=== PATIENT | male | born 1955 | race Caucasian/White ===

== ENCOUNTER 2018-03-05 10:55 | Day surgery (SDC) | payer OTHER ==
[~2018-03-05] VITALS: Ht 182.9 cm; Wt 82.0 kg
[2018-03-05] MEDS ORDERED: DILT120C11 PO (11:39)
[2018-03-05] MEDS ORDERED: ASPI-621 PO (11:39)
[2018-03-05] MEDS ORDERED: ATOR10TA9 PO (11:39)
[2018-03-05 11:40] VITALS: BP 116/71
[2018-03-05] MEDS ORDERED: SODIUM CHLORIDE 0.9% 1,000 ML IV SCH (12:00)
[2018-03-05] MEDS ORDERED: PLEASE ENTER ALLERGIES MC SCH (12:30)
[2018-03-05] MEDS ORDERED: ISOPROTERENOL 0.2MG/ML, 5ML ONE (13:01)
[2018-03-05] MEDS ORDERED: ADENOSINE 6 MG/2 ML ONE (13:01)
[2018-03-05] MEDS ORDERED: ONDANSETRON 2MG/ML, 2ML ONE (13:14)
[2018-03-05] MEDS ORDERED: MIDAZOLAM 1 MG/ML, 2ML ONE (13:17)
[2018-03-05] MEDS ORDERED: FENTANYL PF 250 MCG/5ML ONE (13:17)
[2018-03-05] MEDS ORDERED: DEXAMETHASONE 4 MG/ML, 1ML ONE (16:19)
[2018-03-05] MEDS ORDERED: PROPOFOL 10 MG/ML, 20ML ONE (16:19)
[2018-03-05] MEDS ORDERED: ROCURONIUM 10 MG/ML,10ML ONE (16:19)
[2018-03-05] MEDS ORDERED: HEPARIN 1,000 UNITS/ML, 10ML ONE (16:19)
[2018-03-05] MEDS ORDERED: SUCCINYLCHOLINE 20 MG/ML, 10ML ONE (16:19)
[2018-03-05] MEDS ORDERED: LORazepam 2 MG/ML, 1ML IVPush PRN (17:00)
[2018-03-05] MEDS ORDERED: MIDAZOLAM 1 MG/ML, 2ML IV PRN (17:00)
[2018-03-05] MEDS ORDERED: ONDANSETRON 2MG/ML, 2ML IV PRN (17:00)
[2018-03-05] MEDS ORDERED: HYDROmorphone 1 MG/ML, 1ML IV PRN (17:00)
[2018-03-05] MEDS ORDERED: ALBUTEROL SULFATE 2.5 MG/3 ML NPPB PRN (17:00)
[2018-03-05] MEDS ORDERED: FENTANYL PF 100 MCG/2ML IV PRN (17:00)
[2018-03-05] MEDS ORDERED: ONDANSETRON ODT 8 MG PO PRN (17:00)
[2018-03-05] MEDS ORDERED: PROMETHAZINE 25 MG/ML, 1ML IV PRN (17:00)
[2018-03-05] MEDS ORDERED: EPHEDRINE 50 MG/ML, 1ML IVPush PRN (17:00)
[2018-03-05] MEDS ORDERED: PROMETHAZINE 12.5 MG SUPP PR PRN (17:00)
[2018-03-05] MEDS ORDERED: MORPHINE SULFATE 4 MG/ML, 1ML IVPush PRN (17:00)
[2018-03-05] MEDS ORDERED: LABETALOL 5MG/ML, 20ML IV PRN (17:00)
[2018-03-05] MEDS ORDERED: MEPERIDINE/PF 25MG/0.5ML IVPush PRN (17:00)
[2018-03-05] MEDS ORDERED: HALOPERIDOL 5 MG/ML IV PRN (17:00)
[2018-03-05] MEDS ORDERED: hydrALAzine 20 MG/ML, 1ML IV PRN (17:00)
[2018-03-05] MEDS ORDERED: OXYcodone 5 MG/5 ML ORAL.SOL UDC PO PRN (17:00)
[2018-03-05 17:34] VITALS: BP 112/64
== END 2018-03-05 22:18 | disposition home or self-care (01) ==
LOC: CACL 10:55 → 5SO 17:30 → CACL 22:18
PROVIDERS: ATTEND Internal Medicine Cardiovascular Disease
DX: R00.0 Tachycardia, unspecified (principal); Z79.82 Long term (current) use of aspirin
CPT/HCPCS: 93613; 93621; 93653; C1730; C1732; C1894; J0330; J1100; J1644; J2250; J2405; J2704; J3010; G0378; J0153

== ENCOUNTER → 2020-02-11 | Outpatient (CLI) | payer OTHER ==
[~2020-02-11] MED LIST: ASPI81TA45 PO; ATOR10TA9 PO; DILT120C11 PO
[2020-02-11 12:58] LABS: INTERNATIONAL NORMALIZED RATIO 1.04 (0.93-1.1); PROTHROMBIN TIME 10.7 Seconds (9.6-11.5)
[2020-02-11 13:25] LABS: ALANINE AMINOTRANSFERASE 26 U/L (12-78); ALBUMIN 3.9 g/dL (3.4-5.0); ANION GAP 4 mmol/L (5-15); CALCIUM 8.7 mg/dL (8.5-10.1); CHLORIDE 109 mmol/L (98-107); CREATININE 0.79 mg/dL (0.7-1.3)
[2020-02-11 13:30] LABS: ALKALINE PHOSPHATASE 65 U/L (45-117); BILIRUBIN,TOTAL 0.5 mg/dL (0.2-1.0); TOTAL PROTEIN 6.9 g/dL (6.4-8.2)
[2020-02-11 13:50] LABS: BASOPHILS # (AUTO) 0.03 x10^3/uL (0-0.1); BASOPHILS % (AUTO) 1 % (0-1); EOSINOPHILS % (AUTO) 2 % (1-7); LYMPHOCYTES # (AUTO) 1.83 x10^3/uL (1-3.4); LYMPHOCYTES % (AUTO) 41 % (22-44); MD NO; MEAN CORPUSCULAR HEMOGLOBIN 31.8 pg (27.5-34.5); MEAN CORPUSCULAR HGB CONC 32.9 g/dL (33.2-36.2); MEAN PLATELET VOLUME 10.6 fL (7.4-10.4); MONOCYTES # (AUTO) 0.42 x10^3/uL (0.2-0.8); MONOCYTES % (AUTO) 9 % (2-9); NEUTROPHILS # (AUTO) 2.11 x10^3/uL (1.8-6.8); NEUTROPHILS % (AUTO) 47 % (42-75); PLATELET COUNT 173 x10^3/uL (130-400); RED BLOOD COUNT 4.73 x10^6/uL (4.38-5.82); RED CELL DISTRIBUTION WIDTH 13.6 % (9.4-14.8)
== END | disposition home or self-care (01) ==
LOC: CFH 09:03
PROVIDERS: ATTEND Internal Medicine Cardiovascular Disease
DX: I48.91 Unspecified atrial fibrillation (principal)
CPT/HCPCS: 36415; 80053; 85025; 85610; 85730

== ENCOUNTER → 2020-02-12 | Outpatient (CLI) | payer OTHER ==
[~2020-02-12] MED LIST changes: +OMNIPAQUE 350 MG/ML, 150 ML BOTTLE ONE
== END | disposition home or self-care (01) ==
LOC: CFH 11:36
PROVIDERS: ATTEND Internal Medicine Cardiovascular Disease
DX: I77.810 Thoracic aortic ectasia (principal); I48.91 Unspecified atrial fibrillation
CPT/HCPCS: 71046; 75572; Q9967

== ENCOUNTER 2020-02-18 05:59 | Observation (INO) | payer OTHER ==
[~2020-02-18] VITALS: Ht 182.9 cm; Wt 82.9 kg
[~2020-02-18 05:59] MED LIST changes: -OMNIPAQUE 350 MG/ML, 150 ML BOTTLE ONE
[2020-02-18] MEDS ORDERED: SODIUM CHLORIDE 0.9% 1,000 ML IV SCH (06:22)
[2020-02-18 06:26] VITALS: BP 110/66
[2020-02-18] MEDS ORDERED: SODIUM CHLORIDE 0.9% 1,000 ML IV ONE (06:30)
[2020-02-18] MEDS ORDERED: MULT-249 PO (06:34)
[2020-02-18] MEDS ORDERED: DILT120C11 PO (06:34)
[2020-02-18] MEDS ORDERED: PROPOFOL 50 ML ONE (07:42)
[2020-02-18] MEDS ORDERED: MIDAZOLAM 1 MG/ML, 2ML ONE (07:42)
[2020-02-18] MEDS ORDERED: FENTANYL PF 250 MCG/5ML ONE (07:42)
[2020-02-18] MEDS ORDERED: LIDOCAINE 1%, 20ML ONE (07:48)
[2020-02-18] MEDS ORDERED: SUCCINYLCHOLINE 20 MG/ML, 10ML ONE (08:12)
[2020-02-18] MEDS ORDERED: DEXAMETHASONE 4 MG/ML, 1ML ONE (09:35)
[2020-02-18] MEDS ORDERED: HEPARIN 1,000 UNITS/ML, 10ML ONE ×2 (09:35)
[2020-02-18] MEDS ORDERED: ROCURONIUM 10 MG/ML,10ML ONE (09:35)
[2020-02-18] MEDS ORDERED: ONDANSETRON 2MG/ML, 2ML ONE (09:35)
[2020-02-18] MEDS ORDERED: FENTANYL PF 100 MCG/2ML ONE (10:38)
[2020-02-18] MEDS ORDERED: LABETALOL 5MG/ML, 20ML IV PRN (11:00)
[2020-02-18] MEDS ORDERED: ONDANSETRON 2MG/ML, 2ML IVPush PRN (11:00)
[2020-02-18] MEDS ORDERED: ACETAMINOPHEN 325 MG TABLET PO PRN ×2 (11:00→11:30)
[2020-02-18] MEDS ORDERED: FENTANYL PF 100 MCG/2ML IV PRN (11:00)
[2020-02-18] MEDS ORDERED: MEPERIDINE/PF 25MG/0.5ML IVPush PRN (11:00)
[2020-02-18] MEDS ORDERED: EPHEDRINE 50 MG/ML, 1ML IM PRN (11:00)
[2020-02-18] MEDS ORDERED: DIPHENHYDRAMINE 50 MG/ML, 1ML IVPush PRN (11:00)
[2020-02-18] MEDS ORDERED: DIAZEPAM 5 MG/ML, 2ML IVPush PRN (11:00)
[2020-02-18] MEDS ORDERED: morphine SULFATE 10 MG/ML, 1ML IVPush PRN (11:00)
[2020-02-18] MEDS ORDERED: OXYcodone 5 MG/5 ML ORAL.SOL UDC PO PRN (11:00)
[2020-02-18] MEDS ORDERED: EPHEDRINE 50 MG/ML, 1ML IVPush PRN (11:00)
[2020-02-18] MEDS ORDERED: PROMETHAZINE 25 MG/ML, 1ML IVPush PRN (11:00)
[2020-02-18] MEDS: APIXABAN 5 MG TABLET PO SCH ×2 (12:35→20:14)
[2020-02-18] MEDS ORDERED: APIXABAN 5 MG TABLET ONE (12:43)
[2020-02-18] MEDS ORDERED: ASCO100018 PO (13:28)
[2020-02-18] MEDS ORDERED: APIX5TAB PO (13:28)
[2020-02-18] MEDS ORDERED: KRIL1CAP31 PO (13:30)
[2020-02-18] MEDS ORDERED: ZOLP-413 PO (13:39)
[2020-02-18 14:11] VITALS: BP 109/67
[2020-02-18] MEDS ORDERED: ZOLPIDEM 5MG TABLET PO PRN (16:00)
[2020-02-18] MEDS ORDERED: FLU VACC QS2020-21(6MOS UP)/PF 60MCG/0.5 ML SYR IM-VACC ONE (16:30)
[2020-02-18 19:10] VITALS: BP 108/67
[2020-02-18] MEDS: COLCHICINE 0.6 MG CAPSULE PO SCH (20:14)
[2020-02-19 02:08] VITALS: BP 102/63
[2020-02-19 07:37] VITALS: BP 99/61
[2020-02-19] MEDS: COLCHICINE 0.6 MG CAPSULE PO SCH (08:28)
[2020-02-19] MEDS: APIXABAN 5 MG TABLET PO SCH (08:28)
[2020-02-19] MEDS ORDERED: ACET325T26 PO (08:30)
[2020-02-19] MEDS ORDERED: DILTIAZEM 120 MG CAP.ER.24H PO SCH (09:00)
[2020-02-19] MEDS ORDERED: APIX5TAB (15:18)
== END 2020-02-19 11:00 | disposition home or self-care (01) ==
LOC: CACL 05:59 → ORIP 11:25 → 5SO 12:38 → CACL 12:52 → 5SO 13:36 → DCLOUNGE 02-19 10:55
PROVIDERS: ADMIT Internal Medicine Cardiovascular Disease; ATTEND Internal Medicine Cardiovascular Disease
DX: I48.91 Unspecified atrial fibrillation (principal); Z20.828 Contact with and (suspected) exposure to other viral communicable diseases; I48.92 Unspecified atrial flutter; Z23 Encounter for immunization
CPT/HCPCS: 36415; 85347; 87635; 90471; 90686; 93306; 93312; 93321; 93325; 93613; 93655; 93656; 93657; 93662; C1730; C1732; C1759; C1766; C1893; C1894; G0378; J0330; J1100; J1644; J2250; J2405; J2704; J3010; J3490